=== PATIENT | male | born 1980 | race Caucasian/White ===

== ENCOUNTER 2017-04-04 13:28 | Emergency (ER) | payer SELFPAY ==
[~2017-04-04] VITALS: Ht 165.1 cm; Wt 64.0 kg
[2017-04-04 13:46] VITALS: BP 106/80
[2017-04-04] MEDS ORDERED: PROPARACAINE OPHTH 0.5%, 15ML ONE ×2 (14:19→14:25)
[2017-04-04] MEDS ORDERED: FLUORESCEIN OPHTHALMIC 1 MG STRIP ONE ×2 (14:19→14:25)
[2017-04-04] MEDS ORDERED: FLUORESCEIN OPHTHALMIC 1 MG STRIP OP ONE (14:30)
[2017-04-04] MEDS ORDERED: PROPARACAINE OPHTH 0.5%, 15ML EACHEYE ONE (14:30)
== END 2017-04-04 15:33 | disposition home or self-care (01) ==
LOC: ED 15:25
DX: B30.8 Other viral conjunctivitis (principal)
CPT/HCPCS: 99282

== ENCOUNTER 2019-07-04 07:43 | Emergency (ER) | payer OTHER ==
[~2019-07-04] VITALS: Ht 165.1 cm; Wt 68.6 kg
--- NOTE | 2019-07-04 08:22 | NUR ---
PT AMBULATED TO ROOM FROM LOBBY WITH STEADY GAIT
[2019-07-04] MEDS ORDERED: DIPHENHYDRAMINE 50 MG/ML, 1ML ONE (09:28)
[2019-07-04] MEDS ORDERED: PROCHLORPERAZINE 5 MG/ML, 2ML ONE (09:28)
[2019-07-04] MEDS ORDERED: SODIUM CHLORIDE 0.9% 1,000ML IVBOLUS ONE (09:30)
[2019-07-04] MEDS ORDERED: DIPHENHYDRAMINE 50 MG/ML, 1ML IVPush ONE (09:30)
[2019-07-04] MEDS ORDERED: SODIUM CHLORIDE FLUSH 10ML SYR IVF ONE (09:30)
[2019-07-04] MEDS ORDERED: PROCHLORPERAZINE 5 MG/ML, 2ML IVPush ONE (09:30)
--- NOTE | 2019-07-04 09:47 | NUR ---
PT RESTING IN [facility] WITH CALL LIGHT WTIHN REACH. IV ESTABLISHED AND PT MEDICATED PER MAR. IVF INFUSING. NEED UA. PT STATES HE JUST WENT TO BATHROOM IN [place] AND CANNOT GO RIGHT NOW.
[2019-07-04 10:15] LABS: MICROSCOPIC NOT IND
[2019-07-04 10:19] LABS: CULTURE INDICATED? NO
[2019-07-04 10:46] VITALS: BP 110/54
--- NOTE | 2019-07-04 10:47 | NUR ---
PT RESTING IN [facility] WITH CALL LIGHT WTIHIN REACH. NO NEEDS AT THIS TIME. AWAITING RECHECK BY
== END 2019-07-04 11:30 | disposition home or self-care (01) ==
LOC: ED 10:11
DX: R51 Headache (principal); R30.0 Dysuria; R11.2 Nausea with vomiting, unspecified
CPT/HCPCS: 71046; 81003; 93005; 96361; 96374; 96375; 99284; J0780; J1200; J7030

== ENCOUNTER 2019-10-17 18:27 | Emergency (ER) | payer SELFPAY ==
[~2019-10-17] VITALS: Ht 165.1 cm; Wt 65.0 kg
[2019-10-17] MEDS ORDERED: ONDANSETRON ODT 4 MG ONE (19:57)
[2019-10-17] MEDS ORDERED: IBUPROFEN 600 MG TABLET ONE (19:57)
[2019-10-17] MEDS ORDERED: AZITHROMYCIN 250 MG TABLET ONE ×2 (19:57→20:21)
[2019-10-17] MEDS ORDERED: ACETAMINOPHEN 500 MG TABLET ONE (19:57)
[2019-10-17] MEDS ORDERED: CEFTRIAXONE 250 MG ONE (19:57)
[2019-10-17] MEDS ORDERED: LIDOCAINE-MPF 1%, 5ML ONE ×2 (19:58)
[2019-10-17] MEDS ORDERED: ONDANSETRON ODT 4 MG PO ONE (20:00)
[2019-10-17] MEDS ORDERED: ACETAMINOPHEN 500 MG TABLET PO ONE (20:00)
[2019-10-17] MEDS ORDERED: AZITHROMYCIN 500 MG TABLET PO ONE (20:00)
[2019-10-17] MEDS ORDERED: CEFTRIAXONE 250 MG IM ONE (20:00)
[2019-10-17] MEDS ORDERED: IBUPROFEN 600 MG TABLET PO ONE (20:00)
[2019-10-17 20:13] LABS: MICROSCOPIC NOT IND
[2019-10-17 20:17] LABS: CULTURE INDICATED? NO
[2019-10-17 20:20] LABS: RAPID INFLUENZA A Negative (Negative); RAPID INFLUENZA B Negative (Negative)
--- NOTE | 2019-10-17 21:09 | NUR ---
late entry, pt here for painful uriantion after unprotected sex on wednesday.
[2019-10-17 21:10] VITALS: BP 122/84
--- NOTE | 2019-10-17 21:11 | NUR ---
Patient/Caregiver given discharge instructions and they have confirmed that they understand the instructions. Patient ambulatory with steady gait.
== END 2019-10-17 21:14 | disposition home or self-care (01) ==
LOC: ED 21:05
DX: J02.8 Acute pharyngitis due to other specified organisms (principal); B97.89 Other viral agents as the cause of diseases classified elsewhere; A56.01 Chlamydial cystitis and urethritis; R30.0 Dysuria; Z90.49 Acquired absence of other specified parts of digestive tract
CPT/HCPCS: 36415; 81003; 87081; 87400; 87491; 87591; 87806; 87880; 96372; 99284; J0696; Q0162; G0475